=== PATIENT | male | born 1965 ===

== ENCOUNTER → 2018-06-01 21:06 | Outpatient (REF) | payer SELFPAY ==
[2018-06-01 21:09] LABS: Bacteria Urine None Seen
[2018-06-01 21:40] LABS: Appearance Urine UA CLEAR; Bilirubin Urine UA NEGATIVE (NEGATIVE); Color Urine UA YELLOW; Glucose Urine UA NEGATIVE (Negative); Ketones Urine UA NEGATIVE (NEGATIVE); Leukocyte Esterase Urine UA NEGATIVE (NEGATIVE); Nitrite Urine UA NEGATIVE (Negative); Occult Blood Urine UA NEGATIVE (Negative); Protein Urine UA NEGATIVE (Negative); Urobilinogen Urine UA 0.2 E.U./dL (0.2); pH Urine UA 7.5 (4.5-8.0)
[2018-06-01 22:06] LABS: RBC Urine 0-1/HPF (0-5/HPF); Squamous Epithelial Cell Urine None Seen; WBC Urine 0-1/HPF (0-5/HPF)
== END ==
LOC: LAB 21:06
PROVIDERS: Visit Provider Acupuncturist
DX: R31.9 Hematuria, unspecified (principal)
CPT/HCPCS: 81001